=== PATIENT | female | born 1990 | race Caucasian/White ===

== ENCOUNTER 2020-10-31 16:12 | Emergency (ER) | payer OTHER ==
[~2020-10-31] VITALS: Ht 154.9 cm; Wt 64.9 kg
[2020-10-31] MEDS ORDERED: ONDANSETRON HCL/PF 4 MG/2 ML VIAL IVP ONE (16:30)
[2020-10-31] MEDS ORDERED: IV NS 0.9% 1,000 ML BAG IV ONE (16:30)
[2020-10-31] MEDS ORDERED: KETOROLAC TROMETHAMINE INJ 30 MG/ML VIAL IV ONE (16:30)
[2020-10-31] MEDS ORDERED: KETOROLAC TROMETHAMINE 15 MG/ML VIAL ONE ×2 (16:31→19:11)
[2020-10-31] MEDS ORDERED: ONDANSETRON HCL/PF 4 MG/2 ML VIAL ONE (16:31)
[2020-10-31 16:46] LABS: BASOPHILS # (AUTO) 0.1 /CMM (0.0-0.2); BASOPHILS % (AUTO) 0.7 % (0.0-2.0); HEMATOCRIT 41 % (33-45); HEMOGLOBIN 13.8 g/dL (11.5-14.8); LYMPHOCYTES # (AUTO) 1.4 /CMM (0.8-4.8); LYMPHOCYTES % (AUTO) 11.4 % (20.0-44.0); MEAN CORPUSCULAR HGB CONC 33 g/dl (31.0-36.0); MEAN CORPUSCULAR VOLUME 86 fL (82-100); MONOCYTES # (AUTO) 0.7 /CMM (0.1-1.30); MONOCYTES % (AUTO) 5.6 % (2.0-12.0); NEUTROPHILS % (AUTO) 82.3 % (43.0-81.0); PLATELET COUNT (AUTO) 315 /CMM (150-450); RED BLOOD CELL COUNT(AUTO) 4.78 MIL/uL (4.0-5.2); WHITE BLOOD COUNT (AUTO) 12.2 K/uL (4.3-11.0)
--- NOTE | 2020-10-31 16:48 | NUR ---
NESTOR FROM [facility] TO ER BED 14. AAOX4. NOT IN RESP DISTRESS. AMBULATORY. BROUGHT IN FOR RUQ ABD PAIN SATRTED TODAY. 6/10 TENDER UPON PALPATION RADIATING TO RLQ ABD DESCRIBES PAIN SHARP AND STABBING. PT DOES REPORT NAUSEA. MD WAS AT THE BEDSIDE FOR EVAL. ORDERS RECEIVED, NOTED AND CARRIED OUT. IV LINE ESTABLISHED ON R HAND 20G, BLOOD DRAWN AND GIVEN TO HEALTH PHYSICS TECHNICIAN AT BEDSIDE.
[2020-10-31 16:58] LABS: BILIRUBIN,URINE Negative (NEGATIVE); COLOR,URINE YELLOW (YELLOW); LEUKOCYTE ESTERASE ,URINE Small (NEGATIVE); NITRITE, URINE Negative (NEGATIVE); PH,URINE 7.5 (5.0-8.0); PROTEIN,URINE 30 mg/dl (NEGATIVE); UGLUCOSE Negative (NEGATIVE); UROBILINOGEN,URINE 0.2 EU/dL (0.2)
[2020-10-31 17:00] LABS: CREATININE 0.8 mg/dL (0.6-1.3); POTASSIUM 3.9 mmol/L (3.5-5.1)
[2020-10-31 17:07] LABS: ALBUMIN 4.3 g/dL (3.4-5.0); BILIRUBIN,DIRECT 0.2 mg/dL (0.0-0.2); TOTAL PROTEIN, SERUM 8.3 g/dL (6.4-8.2)
[2020-10-31] MEDS ORDERED: IOHEXOL-300 100 ML VIAL IV ONE (17:17)
[2020-10-31] MEDS ORDERED: IV NS 0.9% 250 ML IV ONE (17:17)
[2020-10-31 17:21] LABS: BACTERIA,URINE 1+ /HPF (None Seen); RBC,URINE NONE SEEN /HPF (0-2); SQUAMOUS EPITHELIAL CELL,UR Few /HPF (None Seen)
[2020-10-31] MEDS ORDERED: IBUP-1957 PO (18:54)
[2020-10-31] MEDS ORDERED: KETOROLAC TROMETHAMINE INJ 30 MG/ML VIAL IM ONE (19:00)
--- NOTE | 2020-10-31 19:30 | NUR ---
CALLED [facility] AND SPOKE WITH MAGUE SANTIAGO ONE OF THE NURSES THERE TO VERIFY IF PT IS STILL ADMITTED. PT IS ALREADY DISCAHRGED FROM THE FACILITY.
[2020-10-31] MEDS ORDERED: LORAZEPAM 1 MG TABLET ONE (20:08)
--- NOTE | 2020-10-31 20:10 | NUR ---
Kenny barrios in [facility] - 10/31/20 at 2038 by FELI pt picked up by her lebron
--- NOTE | 2020-10-31 20:17 | NUR ---
PT VERBALIZED THAT SHE IS NOT SUICIDAL NOR HOMICIDAL AND WOULD LIKE TO GO HOME INSTEAD OF GOING BACK. MADE AWARE.
[2020-10-31] MEDS ORDERED: LORAZEPAM 1 MG TABLET PO ONE (20:30)
--- NOTE | 2020-10-31 20:30 | NUR ---
PT IS PICKED UP BY HER FAMILY
[2020-10-31 20:37] VITALS: BP 114/69
--- NOTE | 2020-10-31 20:37 | NUR ---
Patient discharged to home in stable condition. Written and verbal after care instructions given. Patient verbalizes understanding of instruction.IV removed. Catheter intact and site benign. Pressure and 4x4 applied to site. No bleeding noted. Pt ambulatory with a steady gait
== END 2020-10-31 20:10 | disposition home or self-care (01) ==
LOC: ER 16:12
DX: N83.291 Other ovarian cyst, right side (principal); R10.11 Right upper quadrant pain; R10.31 Right lower quadrant pain; R11.10 Vomiting, unspecified; J45.909 Unspecified asthma, uncomplicated; Z60.2 Problems related to living alone; Z79.899 Other long term (current) drug therapy
CPT/HCPCS: 36415; 74177; 76705; 80048; 80076; 81001; 83690; 84703; 85025; 87086; 96361; 96372; 96374; 96375; 99285; J1885 ×2; J2405; J7030; J7050; Q9967

== ENCOUNTER 2022-09-06 18:13 | Emergency (ER) | payer OTHER ==
[~2022-09-06] VITALS: Ht 154.9 cm; Wt 84.8 kg
[~2022-09-06 18:13] MED LIST: IBUP-1957 PO
[2022-09-06] MEDS ORDERED: ALBUTEROL FS 2.5 MG/3 ML VIAL.NEB CONTNEB ONE (18:30)
[2022-09-06] MEDS ORDERED: IPRATROPIUM NEB FS 0.5 MG/2.5 ML AMPUL.NEB NEB ONE (18:30)
[2022-09-06] MEDS ORDERED: ALBU8.5H8 INH (18:30)
[2022-09-06] MEDS ORDERED: predniSONE 20 MG TABLET PO ONE (18:30)
[2022-09-06] MEDS ORDERED: PRED50TA PO (18:30)
--- NOTE | 2022-09-06 18:30 | NUR ---
RT CALLED FOR BREATHING [place]
[2022-09-06] MEDS ORDERED: predniSONE 20 MG TABLET ONE (18:31)
--- NOTE | 2022-09-06 18:31 | NUR ---
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
[2022-09-06] MEDS ORDERED: ALBUTEROL FS 2.5 MG/3 ML VIAL.NEB ONE (18:35)
[2022-09-06] MEDS ORDERED: IPRATROPIUM NEB FS 0.5 MG/2.5 ML AMPUL.NEB ONE (18:35)
--- NOTE | 2022-09-06 18:35 | NUR ---
PREDNISONE PO GIVEN INDICATED, AMBAR WELL
[2022-09-06] MEDS ORDERED: ASPIRIN/ACETAMINOPHEN/CAFFEINE 1 EACH TABLET PO PRN (19:00)
--- NOTE | 2022-09-06 19:11 | NUR ---
EXCEDRIN PO GIVEN TO PT FOR MIGRAINE HEADACHE, AMBAR WELL.
[2022-09-06 19:19] VITALS: BP 138/72
== END 2022-09-06 20:03 | disposition home or self-care (01) ==
LOC: ER 18:17
DX: J45.901 Unspecified asthma with (acute) exacerbation (principal); Z87.891 Personal history of nicotine dependence; Z79.899 Other long term (current) drug therapy
CPT/HCPCS: 99285; 94644; J7512